=== PATIENT | female | born 1990 ===

== ENCOUNTER 2023-09-17 10:11 | Outpatient (CLI) | payer OTHER ==
--- NOTE | 2023-09-17 22:09 | Ultrasound Report ---
PROCEDURE: Soft Tissue Head or Neck INDICATIONS: THYROIDITIS TECHNIQUE: Real-time scanning was performed of the thyroid gland, with image documentation. COMPARISON: None FINDINGS: Right: Thyroid lobe measures 4.3 x 1.4 x 1.8 cm. Left: Thyroid lobe measures 3.5 x 1.3 x 1.4 cm Isthmus: 0.5 cm thick. Echotexture: Homogeneous. Nodule number: One. It is noted this was site of previous FNA. Location: Isthmus Size: 0.8 x 0.9 x 0.4 cm is compared to 1.0 x 0.7 x 0.5 cm. Composition: Solid. Echogenicity: Hypoechoic. Shape: wider than tall (0 points). Margins: Smooth (0 points). Echogenic foci: None (0 points). Total points: 4 ACR TI-RADS category: 4 IMPRESSION: Category 4 lesion which does not meet criteria for additional follow-up. It is noted that FNA was per formed at 2022] negative for malignancy. ACR TI-RADS definitions and recommendations: TI-RADS 1 (benign): 0 points. FNA not needed. TI-RADS 2 (not suspicious): 2 points. FNA not needed. TI-RADS 3 (mildly suspicious): 3 points. "FNA if 2.5 cm or larger, follow up if 1.5 cm or larger (at 1, 3, and 5 years). TI-RADS 4 (moderately suspicious): 4-6 points. "FNA if 1.5 cm or larger, follow up if 1 cm or larger (at 1, 2, 3, and 5 years). TI-RADS 5 (highly suspicious): 7 points or more. "FNA if 1 cm or larger, follow up if 0.5 cm or larger (every year for 5 years). Reviewed by: Alina Cunha MD on 09/17/2023 9:58 PM PDT Approved by: Alina Cunha MD on 09/17/2023 9:58 PM PDT Station ID: [id number]
== END 2023-09-17 10:12 | disposition home or self-care (01) ==
LOC: DI 10:11
PROVIDERS: ATTEND Student in an Organized Health Care Education/Training Program
DX: E06.3 Autoimmune thyroiditis (principal); E04.1 Nontoxic single thyroid nodule